=== PATIENT | female | born 1975 | race Caucasian/White ===

== ENCOUNTER 2020-09-25 11:33 | Day surgery (SDC) | payer OTHER, SELFPAY ==
[~2020-09-25] VITALS: Ht 154.9 cm; Wt 68.9 kg
[2020-09-25] MEDS ORDERED: fentaNYL citrate 0.05 MG/ML VIAL ONE (12:54)
[2020-09-25] MEDS ORDERED: diphenhydrAMINE 50 MG/ML VIAL ONE (12:54)
[2020-09-25] MEDS ORDERED: LIDOCAINE 2% 100 MG/5 ML UJET TP ONE ×2 (12:55→13:45)
[2020-09-25] MEDS ORDERED: MIDAZOLAM 5 MG/5 ML VIAL ONE (12:55)
[2020-09-25] MEDS ORDERED: MIDAZOLAM 2 MG/2 ML VIAL IVP ONE (13:45)
[2020-09-25] MEDS ORDERED: fentaNYL citrate 0.05 MG/ML VIAL IVP ONE (13:45)
[2020-09-25] MEDS ORDERED: EPINEPHrine PFS 0.1 MG/ML SYR IVP ONE ×2 (13:46→13:50)
[2020-09-25] MEDS ORDERED: EPINEPHrine PFS 0.1 MG/ML SYR IVP SCH (14:00)
== END 2020-09-25 14:30 | disposition home or self-care (01) ==
LOC: MDS 11:33 → MMU 11:34 → MDS 14:30
PROVIDERS: ATTEND Internal Medicine Gastroenterology
DX: K62.5 Hemorrhage of anus and rectum (principal); K63.5 Polyp of colon; Z98.82 Breast implant status; Z88.0 Allergy status to penicillin; Z98.51 Tubal ligation status; Z20.828 Contact with and (suspected) exposure to other viral communicable diseases; Z79.899 Other long term (current) drug therapy
CPT/HCPCS: 45380; 45381; 45385; J0171; J2250; J3010; J7030; U0003; 88305; J1200